=== PATIENT | female | born 1985 | race African-American/Black ===

== ENCOUNTER 2019-08-22 17:37 | Inpatient (IN) ==
[2019-08-22] MEDS ORDERED: MEPERIDINE 50 MG/1 ML VIAL IV PRN (17:51)
[2019-08-22] MEDS ORDERED: ONDANSETRON 4 MG/2 ML VIAL IV PRN (17:51)
[2019-08-22 18:44] LABS: Basophils % 0.3 % (0.0-0.8); Eosinophils # 0.1 10*3/uL (0.0-0.87); Eosinophils % 1.1 % (0.00-10.9); Hematocrit 32.8 VOL% (35.7-47.0); Hemoglobin 10.6 GM/DL (12.0-16.0); Immature Granulocytes % 0.3 %; Immature Granulocytes Absolute 0.02 #; Lymphocytes # 1.8 10*3/uL (1.4-4.0); Lymphocytes % 22.2 % (21.3-54.2); Mean Corpuscular HGB Conc 32.3 GM/DL (32-36); Mean Corpuscular Volume 84.8 FL (87-102); Mean Platelet Volume 11.2 FL (9.6-12.0); Monocytes % 7.4 % (1.7-12.7); Neutrophils % 68.7 % (38.7-73.9); Platelet Count 195 T/CUMM (130-400); Red Blood Count 3.87 MC/CUMM (3.8-5.5); Red Cell Distribution Width 13.1 % (9.3-17.3)
[2019-08-22 19:03] LABS: INR 0.9; PT Patient Result 10.2 SECS (9.6-12.2)
[2019-08-22 19:05] LABS: Albumin 2.3 G/DL (3.4-5.0); Bilirubin,Total 0.4 MG/DL (0.2-1.0); Calcium 8.6 MG/DL (8.5-10.1); Osmolality,Calculated 274.5 MOS/KG (273-304); Total Protein 5.9 G/DL (6.4-8.3); Uric Acid 4.1 MG/DL (2.6-6.0)
[2019-08-22] MEDS: LABETALOL 100 MG TABLET PO SCH (21:35)
[2019-08-23] MEDS: LACTATED RINGERS 1,000 ML IV SCH ×2 (00:50→14:17)
[2019-08-23] MEDS: BUTORPHANOL 2 MG/ML VIAL IV PRN ×2 (00:56→04:57)
[2019-08-23] MEDS ORDERED: OXYTOCIN/LR 20 UNIT/1,000 ML BAG IV SCH (02:00)
[2019-08-23] MEDS ORDERED: PROMETHAZINE 25 MG/1 ML VIAL IM ONE (06:15)
[2019-08-23] MEDS ORDERED: FAMOTIDINE 20 MG/2 ML VIAL IV ONE (06:15)
[2019-08-23] MEDS ORDERED: diphenhydrAMINE 50 MG/1 ML VIAL IV PRN ×2 (06:15)
[2019-08-23] MEDS ORDERED: NALOXONE 0.4 MG/ML VIAL IV PRN (06:15)
[2019-08-23] MEDS ORDERED: CITRIC ACID/SODIUM CITRATE 30 ML UDCUP PO ONE (06:15)
[2019-08-23] MEDS ORDERED: hydrOXYzine HCL 25 MG/1 ML VIAL IM PRN (06:15)
[2019-08-23] MEDS ORDERED: ePHEDrine 50 MG/ML AMP IV PRN (06:15)
[2019-08-23] MEDS ORDERED: DINOPROSTONE VAG GEL 10 MG SYRINGE VAG ONE (06:27)
[2019-08-23] MEDS ORDERED: fentaNYL 2 MCG/ROPIV 0.2% EPID 100 ML EPIDURAL SCH (06:30)
[2019-08-23 06:50] LABS: INR 0.9; PT Patient Result 10.2 SECS (9.6-12.2); Partial Thromboplastin Time 28.5 SECS (20.8-36.0)
[2019-08-23 07:08] LABS: Albumin 2.4 G/DL (3.4-5.0); Bilirubin,Direct 0.14 MG/DL (0.0-0.20); Bilirubin,Total 0.5 MG/DL (0.2-1.0); Calcium 8.7 MG/DL (8.5-10.1); Osmolality,Calculated 277.3 MOS/KG (273-304); Total Protein 6.2 G/DL (6.4-8.3); Uric Acid 3.9 MG/DL (2.6-6.0)
[2019-08-23] MEDS: LABETALOL 100 MG TABLET PO SCH (08:16)
[2019-08-23] MEDS ORDERED: ceFAZolin 3,000 MG in SYRINGE 1 EACH IV ONE (08:43)
[2019-08-23] MEDS ORDERED: OXYTOCIN 10 UNIT/ML VIAL IM ONE (08:45)
[2019-08-23] MEDS ORDERED: OXYTOCIN/LR 30 UNIT/1,000 ML BAG IV ONE (08:45)
[2019-08-23] MEDS ORDERED: miSOPROStoL 200 MCG TABLET ONE (09:34)
[2019-08-23] MEDS ORDERED: OXYTOCIN/LR 20 UNIT/1,000 ML BAG IV ONE ×2 (09:34→14:57)
[2019-08-23] MEDS ORDERED: METHYLERGONOVINE 0.2 MG/1 ML AMP ONE (09:35)
[2019-08-23] MEDS ORDERED: CARBOPROST TROMETHAMINE 250 MCG/ML AMP IM ONE (09:35)
[2019-08-23 11:25] LABS: Cord Arterial Blood HCO3 26.5 MMOL/L
[2019-08-23 11:26] LABS: Cord Venous Blood HCO3 22.5 MMOL/L; Cord Venous Blood PCO2 50.7 MMHG; Cord Venous Blood PO2 23.4
[2019-08-23 11:30] LABS: Apearance,Urine CLEAR (Clear); Bacteria,Urine Occasional /HPF (Few); Bilirubin,Urine Negative (Negative); Blood, Urine Negative (Negative); Glucose,Urine (UA) Negative (Negative); Ketones,Urine Negative (Negative); Mucus,Urine Occasional /LPF (Occasional); Nitrite,Urine Negative (Negative); Protein,Urine Negative; RBC,Urine <1 /HPF (0-4); Squamous Epithelial Cell,Urine Occasional /HPF (0-10); Urine Color Yellow (Yellow); Urine Specific Gravity 1.025 (1.001-1.035); Urine Urobilinogen < 2.0 EU/DL (0.2-1.0); WBC,Urine 3 /HPF (0-6)
[2019-08-23] MEDS ORDERED: MORPHINE 10 MG/10 ML VIAL ONE (11:50)
[2019-08-23] MEDS ORDERED: BUPIVACAINE MPF 0.5% /EPI 30 ML VIAL ONE (11:50)
[2019-08-23] MEDS ORDERED: BUPIVACAINE SPINAL 0.75% 2 ML AMP SPINAL ONE (11:50)
[2019-08-23] MEDS ORDERED: LABETALOL 100 MG/20 ML VIAL IV ONE (11:51)
[2019-08-23] MEDS ORDERED: MIDAZOLAM 2 MG/2 ML VIAL ONE (11:51)
[2019-08-23] MEDS ORDERED: KETAMINE 500 MG/10 ML VIAL ONE (11:51)
[2019-08-23] MEDS ORDERED: ONDANSETRON 4 MG/2 ML VIAL ONE (11:51)
[2019-08-23] MEDS ORDERED: LACTATED RINGERS 1,000 ML IV ONE (11:51)
[2019-08-23] MEDS ORDERED: DEXAMETHASONE 4 MG/1 ML VIAL ONE (11:51)
[2019-08-23] MEDS ORDERED: PHENYLEPHRINE 1 MG/10 ML SYRINGE IV ONE (11:51)
[2019-08-23] MEDS ORDERED: IBUPROFEN 800 MG TABLET PO PRN (14:57)
[2019-08-23] MEDS ORDERED: ceFAZolin 1,000 MG in SYRINGE 1 EACH IV SCH (14:57)
[2019-08-23] MEDS ORDERED: LACTATED RINGERS 1,000 ML IV SCH (14:57)
[2019-08-23] MEDS ORDERED: RHO(D) IMMUNE GLOBULIN 300 MCG SYRINGE IM ONE (14:57)
[2019-08-23] MEDS ORDERED: ACETAMINOPHEN 325 MG TABLET PO PRN (14:57)
[2019-08-23] MEDS ORDERED: ceFAZolin 2,000 MG in PREMIX 1 EACH IV SCH (17:00)
[2019-08-23] MEDS: ceFAZolin 2,000 MG in PREMIX 1 EACH IV SCH (17:16)
[2019-08-23] MEDS ORDERED: ONDANSETRON 4 MG/2 ML VIAL IV PRN (17:42)
[2019-08-23 19:10] LABS: Basophils % 0.1 % (0.0-0.8); Hematocrit 38.3 VOL% (35.7-47.0); Hemoglobin 12.2 GM/DL (12.0-16.0); Immature Granulocytes % 0.6 %; Immature Granulocytes Absolute 0.12 #; Lymphocytes % 5.3 % (21.3-54.2); Mean Corpuscular HGB Conc 31.9 GM/DL (32-36); Mean Corpuscular Volume 84.5 FL (87-102); Mean Platelet Volume 11.4 FL (9.6-12.0); Monocytes % 2.4 % (1.7-12.7); Neutrophils % 91.6 % (38.7-73.9); Platelet Count 223 T/CUMM (130-400); Red Blood Count 4.53 MC/CUMM (3.8-5.5); White Blood Count 18.6 T/CUMM (4-12)
[2019-08-23 19:42] LABS: Lymphocytes 3 % (20-55); Platelet Estimate Normal; Segmented Neutrophils 94 % (50-85); Total Cells Counted 100
[2019-08-23 19:43] LABS: Hypochromasia Slight; Ovalocytes Few
[2019-08-23 19:44] LABS: Anisocytosis Slight
[2019-08-24] MEDS: ceFAZolin 2,000 MG in PREMIX 1 EACH IV SCH (01:07)
[2019-08-24 03:35] LABS: Basophils % 0.1 % (0.0-0.8); Hematocrit 32.3 VOL% (35.7-47.0); Hemoglobin 10.6 GM/DL (12.0-16.0); Immature Granulocytes % 0.5 %; Immature Granulocytes Absolute 0.09 #; Lymphocytes # 1.7 10*3/uL (1.4-4.0); Lymphocytes % 9.3 % (21.3-54.2); Mean Corpuscular HGB Conc 32.8 GM/DL (32-36); Mean Corpuscular Volume 82.4 FL (87-102); Mean Platelet Volume 11.8 FL (9.6-12.0); Monocytes % 7.8 % (1.7-12.7); Neutrophils % 82.3 % (38.7-73.9); Platelet Count 236 T/CUMM (130-400); Red Blood Count 3.92 MC/CUMM (3.8-5.5); Red Cell Distribution Width 12.9 % (9.3-17.3); White Blood Count 18.1 T/CUMM (4-12)
[2019-08-24] MEDS: MULTIVITAMIN (PRENATAL) TABLET PO SCH (09:10)
[2019-08-24] MEDS: METOCLOPRAMIDE 10 MG TABLET PO SCH ×2 (09:10→16:33)
[2019-08-24] MEDS: MAGNESIUM HYDROXIDE SUSP 30 ML UDCUP PO PRN (09:11)
[2019-08-24] MEDS: DOCUSATE SODIUM 100 MG CAPSULE PO SCH ×2 (09:11→20:55)
[2019-08-24 15:49] VITALS: BP 133/76
[2019-08-25] MEDS: METOCLOPRAMIDE 10 MG TABLET PO SCH ×2 (00:16→09:27)
[2019-08-25] MEDS: SIMETHICONE CHEW 80 MG TABLET PO PRN ×2 (02:10→09:27)
[2019-08-25] MEDS: MAGNESIUM HYDROXIDE SUSP 30 ML UDCUP PO PRN ×2 (02:10→09:27)
[2019-08-25] MEDS: DOCUSATE SODIUM 100 MG CAPSULE PO SCH (09:27)
[2019-08-25] MEDS: MULTIVITAMIN (PRENATAL) TABLET PO SCH (09:28)
== END 2019-08-25 12:30 | disposition home or self-care (01) | DRG 540 ==
LOC: N.LD 17:37 → N.OB 08-23 14:56
PROVIDERS: ADMIT Obstetrics & Gynecology; ATTEND Obstetrics & Gynecology
PROC: LDCSECT (ICD-10-PCS; 2019-08-23 10:00)